=== PATIENT | female | born 1940 | race Caucasian/White ===

== ENCOUNTER 2021-05-22 18:06 | Emergency (ER) | payer MEDICARE, OTHER, SELFPAY ==
[2021-05-22 18:33] VITALS: BP 185/84; PULSE 108; O2SAT 96
[2021-05-22 18:44] VITALS: BP 163/102; PULSE 88; RESP 19; TEMP 36.6; O2SAT 96; BMI 28.3
--- NOTE | 2021-05-22 18:47 | ED_ITS ---
HPI - Psych General Chief Complaint: Back Pain/Injury Stated Complaint: CRISIS, BACK PAIN Time Seen by Provider: 05/22/21 18:45 Source: patient and EMS Mode of arrival: EMS History of Present Illness HPI Narrative: Patient's history of dementia depression came from home for increased depression not eating at all not getting up from the recliner since last night also complaining of low back pain which happened 2 days ago already seen by pcp. patient has mood swings shouting intermittently Related Data Allergies Allergy/AdvReac Type Severity Reaction Status Date / Time Penicillins [PCN] Allergy Unknown VAUGE Unverified 01/22/20 15:34 Sulfa (Sulfonamide Allergy Unknown VAUGE Unverified 01/22/20 15:34 Antibiotics) [SULFA (SULFONAMIDE ANTIBIOTICS)] VALISEPH Allergy Unknown tHEY ALL Uncoded 01/22/20 15:34 DO THE SAME THING Review of Systems Review of Systems: Yes all other systems are reviewed and are negative PMFSH Past Medical History Medical History Fibromyalgia Social History Social History Advance Directives: No Advance Directives Information Provided: Yes Physical Exam 2 Vital Signs: Vital Signs: Last Vital Signs Temp 98 F 05/22/21 18:44 Pulse 76 05/22/21 23:00 Resp 16 05/22/21 23:00 BP 112/66 05/22/21 23:00 Pulse Ox 98 05/22/21 23:00 BMI result Body Mass Index 28.3 Appearance: Alert. Oriented . No acute distress. Non cooperative Eyes: PERRLA, No Nystagmus no pallor or icterus ENT: Pharynx normal. Oral Mucosa moist Neck: Normal inspection. Neck supple. CVS: Normal heart rate and rhythm. Pulses normal. Respiratory: No respiratory distress. Equal air entry bilateral, no wheezing/rales/rhonchi Abdomen: Soft and nontender. Bowel sounds are present, no mass palpable, no CVA tenderness Skin: Skin warm and dry. Normal skin color. Normal skin turgor. Extremities: No lower extremity edema. No calf tenderness psych: Anxious shouting intermittently non cooperative to answer other questions Neuro: Oriented X 3. No motor deficit. No sensory deficit.No cerebellar signs , cranial nerves II-XII intact MDM - Psych MDM Narrative Medical decision making narrative: Patient with depression and anxiety lab workup negative for an metabolic cause will get N consult crisis, Patient seen by N no reason for her to be admitted advised to follow-up as outpatient patient come cooperative spoke to patient's agreed to take her back patient ambulated from bed to chair in steady gait Lab Data Attestation: I reviewed the patient's lab results. Result diagrams: 05/22/21 19:25 05/22/21 19:25 Labs: Lab Results 05/22/21 05/22/21 05/22/21 Range/Units 19:25 19:25 19:25 WBC 9.3 (4.8-10.8) X10*3/uL RBC 4.14 L (4.20-5.50) X10*6/uL Hgb 13.5 (12.0-16.0) g/dl Hct 39.8 (37.0-47.0) % MCV 96.1 (80.0-98.0) fL MCH 32.6 (27.0-33.0) pg MCHC 33.9 (31.0-35.0) g/dl RDW 12.9 (11.0-16.0) % Plt Count 187 (160-400) X10*3/uL MPV 9.9 (9.4-12.3) fL Immature Gran % (Auto) 0.3 (0.0-0.4) % Neut % (Auto) 74.5 H (45-73) % Lymph % (Auto) 14.5 L (20-40) % [place] % (Auto) 9.9 (2-11) % Eos % (Auto) 0.5 (0-4) % Baso % (Auto) 0.3 (0-2) % Lymph # (Auto) 1.4 (1.2-4.9) X10*3/uL [place] # (Auto) 0.9 (0.1-1.2) X10*3/uL Eos # (Auto) 0.1 (0.0-0.4) X10*3/uL Baso # (Auto) 0.0 (0.0-0.2) X10*3/uL Abs Immat Gran (auto) 0.03 (0.00-0.03) X10*3/uL Absolute Neuts (auto) 7.0 (2.0-8.3) x10*3/uL Absolute Nucleated RBC 0.000 (0.0-0.012) X10*3/uL Nucleated RBC % (auto) 0.0 (0.0-0.2) /100WBC Sodium 141 (135-145) mmol/L Potassium 4.7 (3.3-5.1) mmol/L Chloride 107 (96-108) mmol/L Carbon Dioxide 26 (22-29) mmol/L Anion Gap 13 (12-20) BUN 14 (9-16) mg/dL Creatinine 0.83 (0.5-1.4) mg/dL Estim Creat Clear Calc 56.4 Estimated GFR > 60 Random Glucose 127 H (60-115) mg/dL Calcium 9.6 (8.4-10.2) mg/dL Total Bilirubin 1.0 (0.0-1.0) mg/dL AST 20 (5-31) U/L ALT 15 (0-31) U/L Alkaline Phosphatase 74 (39-117) U/L Total Protein 7.0 (6.5-8.0) g/dL Albumin 4.1 (3.5-5.0) g/dL COVID-19 ([facility]IGH) Negative (Negative) COVID-19 Clin Com See Note Discharge Plan Discharge Clinical Impression: Dementia Qualifiers: Dementia type: Alzheimer's Alzheimer's disease onset: late-onset Dementia behavioral disturbance: with behavioral disturbance Qualified Code(s): G30.1 - Alzheimer's disease with late onset Patient Disposition: Home, Self-Care Instructions: Dementia (ED) Additional Instructions: Follow-up with your PCP and therapist Interventions: ED Discharge Assessment Last Done: 05/23/21 00:48 Discharge Date/Time: 05/23/21 00:48
[2021-05-22 19:29] LABS: MANUAL DIFF FLAG NO
[2021-05-22 19:31] LABS: Basophils Percent Auto 0.3 % (0-2); Eosinophils Absolute Auto 0.1 X10*3/uL (0.0-0.4); Eosinophils Percent Auto 0.5 % (0-4); Hematocrit 39.8 % (37.0-47.0); Hemoglobin 13.5 g/dl (12.0-16.0); Imm Gran Abs Auto 0.03 X10*3/uL (0.00-0.03); Imm Gran Pct Auto 0.3 % (0.0-0.4); Lymphocytes Absolute Auto 1.4 X10*3/uL (1.2-4.9); Lymphocytes Percent Auto 14.5 % (20-40); Mean Corpuscular HGB Conc 33.9 g/dl (31.0-35.0); Mean Corpuscular Hemoglobin 32.6 pg (27.0-33.0); Mean Corpuscular Volume 96.1 fL (80.0-98.0); Mean Platelet Volume 9.9 fL (9.4-12.3); Monocytes Absolute Auto 0.9 X10*3/uL (0.1-1.2); Monocytes Percent Auto 9.9 % (2-11); Neutrophils Percent Auto 74.5 % (45-73); Platelet Count 187 X10*3/uL (160-400); Red Blood Count 4.14 X10*6/uL (4.20-5.50); Red Cell Distribution Width 12.9 % (11.0-16.0); White Blood Count 9.3 X10*3/uL (4.8-10.8)
[2021-05-22 19:50] LABS: Alanine Aminotransferase 15 U/L (0-31); Albumin Level 4.1 g/dL (3.5-5.0); Alkaline Phosphatase 74 U/L (39-117); Anion Gap 13 (12-20); Aspartate Amino Transferase 20 U/L (5-31); Blood Urea Nitrogen 14 mg/dL (9-16); COVID-19 Test Negative (Negative); Calcium 9.6 mg/dL (8.4-10.2); Carbon Dioxide 26 mmol/L (22-29); Chloride 107 mmol/L (96-108); Creatinine Clr Calc Pharmacy 56.4; Estimated Glomerular Filt Rate > 60; Glucose Random 127 mg/dL (60-115); Potassium 4.7 mmol/L (3.3-5.1); Sodium 141 mmol/L (135-145)
--- NOTE | 2021-05-22 22:52 | MHC.CARE ---
CARE team was stopped by pt in ED 6H bed while walking by. This contract writer was not previously aware of pt, who was brought to ED by ambulance for back pain. Pt was irritable and angry, speaking loosely about her poor physical health and her frustration with her family members. She was reflecting on past life choices and the custodial consequences (getting , having children), and stated that she wishes she was , but that she would want to go in her sleep and be gone before everyone else. She denied wanting to harm herself and denied history of such. She stated that she has dementia and several other medical issues, and that she fell a few days ago and expressed her anger with being in pain from the fall. This contract writer spoke with ED physician, who requested that this contract writer contact the pt's to assess if he has any concerns for the pt's functioning and safety. Pt's , Medhat ([phone]) was contacted. He shared that he called EMS after 18 hours of the pt not moving from her [facility] recliner, and that she hadn't gotten up to use the bathroom or ate since Sunday evening. He reported that she had become increasingly irate over the course of that time and he was worried that she would become sick if she continued to refuse to move and would be an increasing risk for falling again. He shared that she was diagnosed with dementia within the past couple years and is suspecting that it could be progressing, but denied having any ongoing, significant concerns re: her cognitive functioning and personal safety at this time. Medhat reported that he feels that she may be experiencing muscle spasms when she tries to move, and that he has been waiting to hear back from the PA at the doctor's office about recommendations to manage her pain and discomfort. Medhat had other questions pertaining to her medical treatment while she's been in the ED and was told by this contract writer that someone will call back that will be better able to answer his questions. Details of 's concerns and suspicions were relayed to ED physician Dr. Au.
[2021-05-22 23:00] VITALS: BP 112/66; PULSE 76; RESP 16; O2SAT 98
--- NOTE | 2021-05-23 00:45 | PC.NURSE ---
I assumed care o this pt on her arrival to ED via EMS. Since she arived she has been alert, awake, responsive to verbal stimuli although very agitated and quick to verbally aggressive with any staffb who talks to her. She yells at staff members about her children and her and her life. She is not able to be re-directed when she is yelling about these thigns. She denies SI. Denies HI. SHe is not indicating that she is in any pain. She is COPPOLA x 4. SHe makes eye contact with RN. Respirations are non-labored, RR WNL, no cyanosis, she is speaking in full sentences.
--- NOTE | 2021-05-23 00:47 | PC.NURSE ---
Discharged at thsi time into the care of her . Keyla, whom I spoke with via telephone and whom came to the ED to pickj the pt up at this time. WHen the pt saw Keyla she was verbally aggressive with him, and he was visiibly annoyed with this. I spoke with Keyla about the pts ER course and we assisted the pt into [employer] car. he verbalized an uinderstanding of all DC orders.
== END 2021-05-23 00:48 | disposition home or self-care (01) ==
PROVIDERS: Emergency Provider Internal Medicine
DX: G30.1 Alzheimer's disease with late onset (principal); Z20.822 Contact with and (suspected) exposure to COVID-19; Z79.899 Other long term (current) drug therapy
CPT/HCPCS: 80053; 85025; 87635; 99284

== ENCOUNTER 2021-12-26 09:48 | Outpatient (REF) | payer OTHER, SELFPAY ==
--- NOTE | ~2021-12-26 | XR_ITS ---
EXAMINATION: XR KNEE, BILATERAL CLINICAL INFORMATION: Arthritis. COMPARISON: None TECHNIQUE: 2 views each knee. FINDINGS: LEFT KNEE: There is mild reduction in tricompartment joint space with mild periarticular spurring. There is no abnormal joint effusion, loose bodies or bony erosive changes. No fracture or lytic process. RIGHT KNEE: There is moderate medial and mild loss of lateral and patellofemoral compartment joint space with mild periarticular spurring. No joint effusion seen. There are no loose bodies. No acute fracture or dislocation. XR/XR knee RT 2V IMPRESSION: Mild degenerative changes left knee. No joint effusion, fracture or loose bodies, left knee. Mild degenerative changes right knee with periarticular spurring in the medial and patellofemoral compartments.
--- NOTE | ~2021-12-26 | XR_ITS ---
EXAMINATION: XR KNEE, BILATERAL CLINICAL INFORMATION: Arthritis. COMPARISON: None TECHNIQUE: 2 views each knee. FINDINGS: LEFT KNEE: There is mild reduction in tricompartment joint space with mild periarticular spurring. There is no abnormal joint effusion, loose bodies or bony erosive changes. No fracture or lytic process. RIGHT KNEE: There is moderate medial and mild loss of lateral and patellofemoral compartment joint space with mild periarticular spurring. No joint effusion seen. There are no loose bodies. No acute fracture or dislocation. XR/XR knee LT 2V IMPRESSION: Mild degenerative changes left knee. No joint effusion, fracture or loose bodies, left knee. Mild degenerative changes right knee with periarticular spurring in the medial and patellofemoral compartments.
== END 2021-12-26 09:49 | disposition home or self-care (01) ==
LOC: HO.XRAY 09:48
PROVIDERS: Visit Provider Psychiatry & Neurology Neurology
DX: M17.0 Bilateral primary osteoarthritis of knee (principal)
CPT/HCPCS: 73560

== ENCOUNTER 2022-12-07 21:00 | Emergency (ER) | payer OTHER, SELFPAY ==
[2022-12-07 21:31] VITALS: BP 165/87; PULSE 92; O2SAT 98; BMI 26.7
[2022-12-07 21:36] VITALS: BP 149/78; PULSE 79; RESP 18; TEMP 37.1; O2SAT 96
[2022-12-07 21:52] LABS: Hemoglobin 12.6 g/dl (12.0-16.0); Mean Corpuscular HGB Conc 34.1 g/dl (31.0-35.0); Mean Corpuscular Hemoglobin 32.1 pg (27.0-33.0); Mean Corpuscular Volume 94.4 fL (80.0-98.0); Mean Platelet Volume 10.3 fL (9.4-12.3); Platelet Count 196 X10*3/uL (160-400); Red Blood Count 3.92 X10*6/uL (4.20-5.50); White Blood Count 6.2 X10*3/uL (4.8-10.8)
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
[2022-12-07] MEDS: LORazepam 1 MG TABLET PO (21:57)
[2022-12-07] MEDS: OLANZapine 5 MG TABLET PO (21:57)
[2022-12-07 21:59] LABS: Appearance Urine Cloudy; Color Urine Yellow; Glucose Urine UA Negative (Negative); Leukocyte Esterase Urine Large (3+) (Negative); Nitrite Urine Negative (Negative); PH 7.5 (5.0-9.0); Specific Gravity - Urine 1.015 (1.005-1.025); UMIC TRIGGER UACC YES; Urine Blood Negative (Negative); Urine Ketones Trace mg/dL (Negative); Urine Protein Negative (Neg-Trace)
[2022-12-07 22:02] LABS: Bacteria Urine None Seen (None Seen); Hyaline Casts Urine 0-2 /LPF (0-2); Squamous Epithelial Cell Urine 0-2 /HPF (0-2); UACC Culture Trigger YES; WBC Urine >50 /HPF (0-5)
--- NOTE | 2022-12-07 22:18 | PC.NURSE ---
pt had been screaming and waving arms about, difficult to redirect. confused at times and conversation was flight of ideas. was willing to take po meds and is now starting to calm with eyes closed.
--- OUTSIDE RECORDS SUMMARY | 2022-12-07 22:26 | XMS_ITS | Continuity of Care Document ---
Author Name Unknown Organization [facility] Address [address] [place] [id number]- Care Team Providers Care Fish Icer Name Role Phone Esha HOBSON, Micha Short Primary Care Physician Encounter [facility] Date(s): 05/17/20 - 06/16/20 [facility] [address] [place] [id number]- Attending Physician: AdmTeressa parr Admitting Physician: Admtr, Teressa Referring Physician: Admtr, Ar8 Allergies, Adverse Reactions, Alerts Substance Reaction Severity Status penicillin Active sulfADIAZINE Active sulfa drugs Active Velosef Active Medications amitriptyline 10 mg oral tablet 1 tablet = 10 mg, By Mouth, Daily at bedtime, 0 Refills, Maintenance, 03/30/14 10:25:27 Start Date: 03/30/14 Status: Ordered Calcium 600 +D oral tablet 1 tablet, By Mouth, 2 times a day, 0 Refills, Maintenance Start Date: 04/05/10 Status: Ordered Centrum Silver 1 tab, By Mouth, Daily, 0 Refills, Maintenance Start Date: 04/05/10 Status: Ordered colestipol 1 gm oral tablet 1 tablet = 1 Gm, By Mouth, Daily, take 2 hours separate from other medications, # 30 tablet, 5 Refills, Maintenance, 01/16/20 12:01:00 EDT, Tablet, [facility] # [facility], 165, cm, 01/16/20 11:14:00 EDT, Height Start Date: 01/16/20 Status: Ordered Flax Seed Oil oral capsule 1000, By Mouth, Daily, 0 Refills, Maintenance Start Date: 04/05/10 Status: Ordered omeprazole 20 mg oral enteric coated tablet 1 tablet = 20 mg, By Mouth, 0 Refills, Maintenance Start Date: 04/05/10 Status: Ordered simvastatin 20 mg oral tablet 1 tablet = 20 mg, By Mouth, Daily at bedtime, 0 Refills, Maintenance, 03/30/14 10:25:40 Start Date: 03/30/14 Status: Ordered Vitamin C 500 mg oral capsule 1 capsule = 500 mg, By Mouth, 2 times a day, 0 Refills, Maintenance Start Date: 04/05/10 Status: Ordered Problem List Condition Effective Dates Status Health Status Inform ant Grade 2 endometrial adenocarcinoma(Confirmed) Active Fibromyalgia(Confirmed) Active Gastro-Esophageal Reflux Dis ease Without Esophagitis(Confirmed) Active Hypercholesterolemia(Confirmed) Active
--- OUTSIDE RECORDS SUMMARY | 2022-12-07 22:26 | XMS_ITS | Continuity of Care Document ---
Author Name Unknown Organization [facility] Address [address] [place] [address]- Care Team Providers Care General Manager Land Department Name Role Phone Micha Balbuena MD Primary Care Physician Encounter [facility] Date(s): 01/06/20 - 04/21/20 [facility] [address] [place] [id number]- Attending Physician: Reggie Larios MD Admitting Physician: Reggie Larios MD Referring Physician: Lux Farley Allergies, Adverse Reactions, Alerts Substance Reaction Severity [...]
[2022-12-07 23:06] LABS: Alanine Aminotransferase 14 U/L (0-31); Albumin Level 3.8 g/dL (3.5-5.0); Alkaline Phosphatase 90 U/L (39-117); Anion Gap 16 (12-20); Aspartate Amino Transferase 20 U/L (5-31); Bilirubin Total 0.7 mg/dL (0.0-1.0); Blood Urea Nitrogen 10 mg/dL (9-16); Calcium 9.5 mg/dL (8.4-10.2); Carbon Dioxide 21 mmol/L (22-29); Chloride 108 mmol/L (96-108); Creatinine Clr Calc Pharmacy 61.2; Estimated Glomerular Filt Rate > 60; Glucose Random 117 mg/dL (60-115); Potassium 3.6 mmol/L (3.3-5.1); Sodium 141 mmol/L (135-145); Total Protein 6.6 g/dL (6.5-8.0)
[2022-12-08 01:33] VITALS: BP 137/47; PULSE 72; RESP 18; O2SAT 96
--- NOTE | 2022-12-08 01:35 | MHC.EDTECH ---
Pt two assist to commode, back to bed. Repositioned, vitals updated, and resting quietly with call mar within reach
[2022-12-08 06:25] VITALS: RESP 18
[2022-12-08 09:49] VITALS: BP 146/64; PULSE 61; RESP 16; TEMP 37.1; O2SAT 99
--- NOTE | 2022-12-08 10:33 | PC.NURSE ---
Ceci [facility] Nurse call. She is calling her MD to reach out to Dr. Jeff contreras. Let her know Pt would decapitate rapidly in the Pod.
--- NOTE | 2022-12-08 10:36 | PC.NURSE ---
Dr Aguilar in to [facility].
--- NOTE | 2022-12-08 10:45 | ECG_ITS ---
Test Reason : qt interval Blood Pressure : / mmHG Vent. Rate : 072 BPM Atrial Rate : 072 BPM P-R Int : 146 ms QRS Dur : 082 ms QT Int : 414 ms P-R-T Axes : 082 -24 007 degrees QTc Int : 453 ms Normal sinus rhythm Minimal voltage criteria for LVH, may be normal variant ( R in aVL ) Borderline ECG When compared with ECG of 18-AUG-2019 10:13, No significant change was found Referred By: Pradip Aguilar Electronically Signed By:HUONG FAYE
--- NOTE | 2022-12-08 10:49 | PC.NURSE ---
Gricelda Cole notified of desire to discharge Pt from Pod.
--- NOTE | 2022-12-08 11:16 | PC.NURSE ---
Pt home number [phone] Cell number [phone]
[2022-12-08] MEDS: cephALEXin 500 MG CAPSULE PO (11:54)
--- NOTE | 2022-12-08 11:55 | PC.NURSE ---
Spoke with Carole RN. Carole wanted to discuss discharge for this patient. This commercial underwriter spoke with Dr Aguilar regarding plan of care for this patient. Dr. Aguilar reporting that he spoke with this patient's outpatient provider. Outpatient provider discussed importance of patient obtaining medical clearance and crisis eval. Dr. Aguilar proceeding with plan in place. Awaiting eval by the care team.
--- NOTE | 2022-12-08 12:47 | PC.NURSE ---
Pt is in bed. Warm blankets and extra pillows for comfort. Pt was given the remote control and reassurance. Pt was instructed to use the call mar. Video monitor is on. Pt is resting comfortably at this time.
--- NOTE | 2022-12-08 15:30 | PC.NURSE ---
denies si/hi/ah/vh. mildly confused to situation. no distress noted. calm, coopeartive. resting in milieu. answering questions appropriately. disposition in process once eval by chd complete
--- NOTE | 2022-12-08 15:55 | PC.NURSE ---
meeting w chd in room calm cooperative. no distress. w pt at bedside.
[2022-12-08 17:29] VITALS: BP 147/63; PULSE 65; RESP 18; TEMP 36.5; O2SAT 99
== END 2022-12-08 17:48 | disposition home or self-care (01) ==
PROVIDERS: Emergency Provider Internal Medicine
DX: F03.918 Unspecified dementia, unspecified severity, with other behavioral disturbance (principal); R94.31 Abnormal electrocardiogram [ECG] [EKG]; Z79.899 Other long term (current) drug therapy
CPT/HCPCS: 36415; 80053; 81001; 81003; 85027; 87086; 93005; 99284; 99285

== ENCOUNTER → 2022-12-08 10:45 | Outpatient (BNV) | payer OTHER, SELFPAY | PROVIDERS: Emergency Provider Internal Medicine; Visit Provider Internal Medicine | DX: I45.81 Long QT syndrome (principal) | CPT/HCPCS: 93010 ==

== ENCOUNTER 2023-12-26 13:57 | Emergency (ER) | payer OTHER, SELFPAY ==
--- NOTE | 2023-12-26 14:12 | ED_ITS ---
HPI - Psych General Chief Complaint: Psychiatric Symptoms Stated Complaint: CRISIS,SI STATEMENTS PER EMS Time Seen by Provider: 12/26/23 14:04 Source: patient, EMS, RN notes reviewed and old records reviewed Mode of arrival: EMS Limitations: no limitations History of Present Illness ED Provider: ROBERT STEVENS PA-C HPI Narrative: 83-year-old female with past medical history significant for depression, Alzheimer's dementia and fibromyalgia presents to the ED today via EMS home following verbal altercation with her . Per EMS, PD was called to the patient's home due to yelling heard by her neighbors. On PD arrival, EMS was contacted. Patient reports occasional episodes of verbal aggression towards her has been secondary to her Alzheimer's dementia. Patient was noted to make SI statements to EMS however she is currently denying SI, stating that she never made such statements. She does however endorse feeling depressed as she has not been able to see her adult children. Denies HI. Denies AH/VH/TH. Denies EtOH consumption. Denies illicit substance use. She denies any physical complaints at present. Related Data Home Medications ?Medication ?Instructions ?Recorded ?Confirmed ascorbic acid (vitamin C) 1,000 mg 500 mg PO DAILY 12/08/22 12/08/22 tablet (Vitamin C) calcium 600 mg capsule 600 mg PO DAILY 12/08/22 12/08/22 tbwkzlmykkyx-jjtqncgn-emkhaq tablet 1 tab PO DAILY 12/08/22 12/08/22 omeprazole 20 mg capsule,delayed 20 mg PO DAILY 12/08/22 12/08/22 release sertraline 25 mg tablet (Zoloft) 25 mg PO DAILY 12/08/22 12/08/22 simvastatin 20 mg tablet 20 mg PO BEDTIME 12/08/22 12/08/22 Previous Rx's ?Medication ?Instructions ?Recorded nitrofurantoin 100 mg PO BID 5 days #10 caps 12/08/22 monohydrate/macrocrystals 100 mg capsule (Macrobid) Allergies Allergy/AdvReac Type Severity Reaction Status Date / Time Penicillins [PCN] Allergy Unknown Unknown Verified 12/26/23 14:29 Sulfa (Sulfonamide Allergy Unknown Unknown Verified 12/26/23 14:29 Antibiotics) [SULFA (SULFONAMIDE ANTIBIOTICS)] Review of Systems 2 Review of Systems: Constitutional: No fever, chills, fatigue, night sweats, weight changes ENT/Mouth: No ear pain, hearing loss, nasal congestion, sinus pain, rhinorrhea, sore throat Eyes: No eye pain, swelling, redness, vision changes, discharge Cardio: No chest pain, palpitations, BIRCH, orthopnea, peripheral edema Pulm: No SOB, cough, sputum, wheezing, dyspnea, hemoptysis GI: No nausea, vomiting, hematemesis, abdominal pain, diarrhea, constipation, hematochezia, melena : No irregular bleeding, dysuria, frequency, urgency, hesitancy, hematuria, flank pain, urinary flow changes, urinary incontinence or retention MSK: No back pain, neck pain, joint pain, myalgias Skin: No lesions, rashes Neuro: No weakness, numbness, paresthesias, LOC, dizziness, headache Psych: No anxiety/panic, depression, SI/HI, AH/VH/TH All other systems reviewed and are negative. [facility] Past Medical History Attestation statement: The following information was validated with the patient. Source: old records reviewed and nursing notes reviewed Medical History Fibromyalgia Social History Social History Smoked in Last 30 Days: No Use of substances other than those prescribed or required for medical reasons: No Advance Directives: No Physical Exam 2 Vital Signs: Vital Signs: Last Vital Signs Temp 98.5 F 12/26/23 14:24 Pulse 78 12/26/23 14:24 Resp 16 12/26/23 14:30 BP 138/72 12/26/23 14:24 Pulse Ox 93 12/26/23 14:24 O2 Del Method Room Air 12/26/23 14:24 BMI result Body Mass Index 26.6 Vital signs stable Const: General: cooperative, healthy appearing, comfortable and no acute distress Orientation/consciousness: oriented to person and oriented to place Limitations: other limitations (Dementia) HEENT: Head: Yes normal to inspection, Yes No palpable skull fracture present, Yes normocephalic and Yes atraumatic Eyes: General: appearance normal, both eyes and all related structures C onjunctivae: conjunctivae normal Sclerae: sclerae normal Pupils: Equal, round and reactive pupils present Neck: Neck: Yes normal visual inspection, Yes full ROM and Yes no lymphadenopathy Resp: Effort & Inspection: normal respiratory effort and able to speak in complete sentences Auscultation: clear to auscultation bilaterally Cardio: Rate: regular rate Rhythm: regular rhythm GI: Inspection: Yes normal to inspection Palpation (GI): Soft to palpation and nontender : General: Yes no CVA tenderness Back/Spine/Pelvis: Back: no CVA tenderness Skin: General skin exam: no rashes or lesions noted Neuro: General: oriented to person, oriented to place, gait normal and no focal motor deficits Cranial nerves: Yes CN's II-XII intact bilaterally and Yes Equal, round and reactive pupils present Extrem: General: Yes normal to inspection Course Course Course Narrative: 1500 -- UA negative for infection. Urine toxicology negative. Labs pending. EKG pending. 1613-- CBC without leukocytosis or left shift. No anemia. H&H stable. Chemistry without acute electrolyte abnormality requiring intervention. No KATRIN. Normal liver function. EKG showing normal sinus rhythm with a rate of 65 beats per minute, QT 428, QTC 445, no acute ischemic changes or ST elevations. No major change when compared to prior EKGs. > at this time patient is medically cleared for care team evaluation. Patient placed in physician observation pending care team and disposition. 1807-- care team has evaluated patient and has determined that the patient does not meet medical necessity for hospitalization. She was advised by her eye doctor yesterday to discontinue her celexa temporarily for an eye procedure this coming Sunday. There is currently a a safety plan in place she has been provided with resources per care team. Patient does not endorse SI. Final disposition discussed with the patient. The patient completed observation care at 181, total time in observation care was 2 hours. Patient has remained stable throughout ED visit today. Discussed worrisome signs and symptoms and when to return to the ED. All questions answered at this time. Patient is agreeable with disposition and stable for discharge. Medical Decision Making Medical Decision Making [facility] Narrative: 83-year-old female with past medical history significant for depression, Alzheimer's dementia and fibromyalgia presents to the ED today via EMS home following verbal altercation with her . Vital signs are stable. She is well-appearing, no acute distress. Skin is warm, dry, intact. No rashes. Moist mucous membranes. RRR. Lungs are CTA bilaterally. Ambulating with steady gait. PERRLA. Oriented to person and place. Differential diagnosis includes depression, dementia, anemia, electrolyte abnormality, dehydration. Unlikely active SI, polysubstance use, psychiatric disroder Plan for basic labs, EKG, UA, UDS, care team consultation Differential Diagnosis Differential Diagnoses: The differential diagnosis associated with the presentation includes As above Admission/Observation Not indicated Lab Data MDM Lab Attestation statement: I reviewed the patient's lab results. As above 12/26/23 15:37 12/26/23 15:37 Labs: Lab Results 12/26/23 12/26/23 Range/Units 14:21 15:37 WBC 5.7 (4.8-10.8) X10*3/uL RBC 3.91 L (4.20-5.50) X10*6/uL Hgb 12.8 (12.0-16.0) g/dl Hct 38.0 (37.0-47.0) % MCV 97.2 (80.0-98.0) fL MCH 32.7 (27.0-33.0) pg MCHC 33.7 (31.0-35.0) g/dl RDW 13.4 (11.0-16.0) % Plt Count 198 (160-400) X10*3/uL MPV 10.6 (9.4-12.3) fL Immature Gran % (Auto) 0.4 (0.0-0.4) % Neut % (Auto) 61.2 (45-73) % Lymph % (Auto) 25.0 (20-40) % [place] % (Auto) 10.2 (2-11) % Eos % (Auto) 2.8 (0-4) % Baso % (Auto) 0.4 (0-2) % Lymph # (Auto) 1.4 (1.2-4.9) X10*3/uL [place] # (Auto) 0.6 (0.1-1.2) X10*3/uL Eos # (Auto) 0.2 (0.0-0.4) X10*3/uL Baso # (Auto) 0.0 (0.0-0.2) X10*3/uL Abs Immat Gran (auto) 0.02 (0.00-0.03) X10*3/uL Absolute Neuts (auto) 3.5 (2.0-8.3) x10*3/uL Absolute Nucleated RBC 0.000 (0.0-0.012) X10*3/uL Nucleated RBC % (auto) 0.0 (0.0-0.2) /100WBC Sodium 143 (135-145) mmol/L Potassium 4.2 (3.3-5.1) mmol/L Chloride 109 H (96-108) mmol/L Carbon Dioxide 29 (22-29) mmol/L Anion Gap 9 L (12-20) BUN 7 L (9-16) mg/dL Creatinine 0.77 (0.5-1.4) mg/dL Estim Creat Clear Calc 56.2 Estimated GFR > 60 Random Glucose 109 (60-115) mg/dL Calcium 9.9 (8.4-10.2) mg/dL Magnesium 2.1 (1.6-2.6) mg/dL Total Bilirubin 0.6 (0.0-1.0) mg/dL AST 24 (5-31) U/L ALT 18 (0-31) U/L Alkaline Phosphatase 78 (39-117) U/L Total Protein 7.4 (6.5-8.0) g/dL Albumin 4.1 (3.5-5.0) g/dL Urine Color Yellow Urine Appearance Clear Urine pH 7.5 (5.0-9.0) Ur Specific [place] 1.015 (1.005-1.025) Urine Protein Negative (Neg-Trace) mg/dL Urine Glucose (UA) Negative (Negative) mg/dL Urine Ketones Negative (Negative) mg/dL Urine Blood Negative (Negative) Urine Nitrite Negative (Negative) Ur Leukocyte Esterase Small (1+) H (Negative) Urine RBC 0-2 (0-2) /HPF Urine WBC 6-10 H (0-5) /HPF Ur Squamous Epith Cells 0-2 (0-2) /HPF Urine Bacteria None Seen (None Seen) Hyaline Casts 0-2 (0-2) /LPF Salicylates < 5.0 L (15-30) mg/dL Urine Opiates Screen Not Detected (Not Detect) Ur Buprenorphine Scrn Not Detected (Not Detect) ng/mL Ur Oxycodone Screen Not Detected (Not Detect) ng/mL Urine Methadone Screen Not Detected (Not Detect) ng/mL Urine Fentanyl Screen Not Detected (Not Detect) Acetaminophen < 3 (<30) mcg/mL Ur Barbiturates Screen Not Detected (Not Detect) Ur Phencyclidine Scrn Not Detected (Not Detect) Ur Amphetamines Screen Not Detected (Not Detect) U Benzodiazepines Scrn Not Detected (Not Detect) Urine Cocaine Screen Not Detected (Not Detect) U Marijuana (THC) Screen Not Detected (Not Detect) Ethyl Alcohol < 10 mg/dL Independent Interpretation I performed an independent interpretation of an: EKG Independent Historian Clinical information obtained from an independent historian. History obtained from or confirmed by: EMS External Record Review External record reviewed: Inpatient record Chronic Conditions Patient?s care impacted by: Other (Alzheimer's dementia, depression) Social Determinants Patient?s care significantly limited by Social Determinants of Health including: Other Social Determinant of Health Critical Care Time Critical Care Time Critical Care Time: No Discharge Plan Discharge Clinical Impression: Depression Patient Disposition: Home, Self-Care Instructions: Depression (ED) Additional Instructions: Your blood work today is reassuring. Your EKG is normal. Your urine is negative for infection. You have met with our CARE team today and were provided resources to help with depression. You have a safety plan in place. Regarding your recent discontinuation of Celexa, please follow up with your primary care provider as you may require a different medication. Please return with new or worsening symptoms. In the case of an emergency call 911. Prescriptions: No Action omeprazole 20 mg Capsule,Delayed Release(Dr/Ec) 20 mg PO DAILY Rx Instructions: with breakfast calcium 600 mg Capsule 600 mg PO DAILY ascorbic acid (vitamin C) [Vitamin C] 1,000 mg Tablet 500 mg PO DAILY simvastatin 20 mg Tablet 20 mg PO BEDTIME sertraline [Zoloft] 25 mg Tablet 25 mg PO DAILY Centrum Silver Tablet 1 tab PO DAILY nitrofurantoin monohyd/m-cryst [Macrobid] 100 mg capsule 100 mg PO BID 5 Days Qty: 10 0RF Rx Instructions: must administer with a meal/food Referrals: [facility] [place] [Provider Group] [facility] [Provider Group] Interventions: Mclennan-Suicide Risk Severity Scale Last Done: 12/26/23 14:31 Print Language: Malawian
--- NOTE | 2023-12-26 14:13 | ECG_ITS ---
Test Reason : PSYCH SYMPTOMS Blood Pressure : / mmHG Vent. Rate : 065 BPM Atrial Rate : 065 BPM P-R Int : 136 ms QRS Dur : 082 ms QT Int : 428 ms P-R-T Axes : 000 -28 171 degrees QTc Int : 445 ms Normal sinus rhythm Minimal voltage criteria for LVH, may be normal variant ( R in aVL ) Nonspecific T wave abnormality Abnormal ECG When compared with ECG of 08-DEC-2022 11:39, No significant change was found Referred By: Devora Vega Electronically Signed By:FAVIO CALLAWAY
[2023-12-26 14:24] VITALS: BP 138/72; BP 157/74; PULSE 76; PULSE 78; RESP 16; TEMP 36.9; O2SAT 93; O2SAT 98; BMI 26.6
[2023-12-26 14:29] LABS: Appearance Urine Clear; Color Urine Yellow; Glucose Urine UA Negative (Negative); Leukocyte Esterase Urine Small (1+) (Negative); Nitrite Urine Negative (Negative); PH 7.5 (5.0-9.0); Specific Gravity - Urine 1.015 (1.005-1.025); UMIC TRIGGER UACC YES; Urine Blood Negative (Negative); Urine Ketones Negative (Negative); Urine Protein Negative (Neg-Trace)
[2023-12-26 14:30] VITALS: RESP 16
[2023-12-26 14:32] LABS: Bacteria Urine None Seen (None Seen); Hyaline Casts Urine 0-2 /LPF (0-2); RBC Urine 0-2 /HPF (0-2); Squamous Epithelial Cell Urine 0-2 /HPF (0-2); UACC Culture Trigger YES
--- NOTE | 2023-12-26 14:32 | PC.NURSE ---
Melissa comes in from home today after a verbal altercation with her that was overheard by neighbors who called PD. Patient reports that she was yelling at her about how she hasn't eaten because she no longer feels like eating. She reports that she feels like she has more arguments with her that usual and it is getting very stressful. per EMS, patient is diagnosed with Alzheimer's/dementia and but is acting at baseline. Patient reports that she feels depressed because she has no contact with two of her adult children and therefore cannot see her grandchildren to live locally. Per EMS, she states she was suicidal but here in the ED she denies any suicidal or homicidal thoughts. Patient is calm and cooperative, alert and oriented x4, ambulatory with slightly unsteady gait. Patient aware of plan of care for med clearance and then CARE team eval
[2023-12-26 14:38] LABS: Amphetamine Screen Urine Not Detected (Not Detect); Barbiturates, Urine Not Detected (Not Detect); Benzodiazepines Screen Urine Not Detected (Not Detect); Buprenorphine Scr Not Detected (Not Detect); Cannabinoid Screen Urine Not Detected (Not Detect); Cocaine Screen Urine Not Detected (Not Detect); Fentanyl, urine Not Detected (Not Detect); Methadone Screen, Urine Not Detected (Not Detect); Opiate Screen Urine Not Detected (Not Detect); Oxycodone Screen Urine Not Detected (Not Detect); Phencyclidine Screen Urine Not Detected (Not Detect)
--- NOTE | 2023-12-26 15:22 | PC.NURSE ---
Patient awake and alert. Skin pwd, resp even and non labored. speaking in full, clear sentences. Currently visiting with her . calm and cooperative. Patient expressing concerns that she has an eye appointment on Sunday for a procedure on her right eye due to closed angle glaucoma. Patient aware of plan for labs and EKG.
[2023-12-26 15:42] LABS: MANUAL DIFF FLAG NO
[2023-12-26 15:56] LABS: Basophils Percent Auto 0.4 % (0-2); Eosinophils Absolute Auto 0.2 X10*3/uL (0.0-0.4); Eosinophils Percent Auto 2.8 % (0-4); Hemoglobin 12.8 g/dl (12.0-16.0); Imm Gran Abs Auto 0.02 X10*3/uL (0.00-0.03); Imm Gran Pct Auto 0.4 % (0.0-0.4); Lymphocytes Absolute Auto 1.4 X10*3/uL (1.2-4.9); Mean Corpuscular HGB Conc 33.7 g/dl (31.0-35.0); Mean Corpuscular Hemoglobin 32.7 pg (27.0-33.0); Mean Corpuscular Volume 97.2 fL (80.0-98.0); Mean Platelet Volume 10.6 fL (9.4-12.3); Monocytes Absolute Auto 0.6 X10*3/uL (0.1-1.2); Monocytes Percent Auto 10.2 % (2-11); Neutrophils Absolute Auto 3.5 x10*3/uL (2.0-8.3); Neutrophils Percent Auto 61.2 % (45-73); Platelet Count 198 X10*3/uL (160-400); Red Blood Count 3.91 X10*6/uL (4.20-5.50); Red Cell Distribution Width 13.4 % (11.0-16.0); White Blood Count 5.7 X10*3/uL (4.8-10.8)
[2023-12-26 16:04] LABS: Acetaminophen LAB < 3 mcg/mL (<30); Alanine Aminotransferase 18 U/L (0-31); Albumin Level 4.1 g/dL (3.5-5.0); Alkaline Phosphatase 78 U/L (39-117); Anion Gap 9 (12-20); Aspartate Amino Transferase 24 U/L (5-31); Bilirubin Total 0.6 mg/dL (0.0-1.0); Blood Urea Nitrogen 7 mg/dL (9-16); Calcium 9.9 mg/dL (8.4-10.2); Carbon Dioxide 29 mmol/L (22-29); Chloride 109 mmol/L (96-108); Creatinine Clr Calc Pharmacy 56.2; Estimated Glomerular Filt Rate > 60; Ethanol < 10 mg/dL; Glucose Random 109 mg/dL (60-115); Magnesium 2.1 mg/dL (1.6-2.6); Potassium 4.2 mmol/L (3.3-5.1); Salicylate < 5.0 mg/dL (15-30); Sodium 143 mmol/L (135-145); Total Protein 7.4 g/dL (6.5-8.0)
[2023-12-26 18:44] VITALS: BP 117/72; PULSE 67; RESP 16; TEMP 36.8; O2SAT 96
== END 2023-12-26 18:55 | disposition home or self-care (01) ==
PROVIDERS: Physician Assistant Medical; Emergency Provider Emergency Medicine
DX: F32.A Depression, unspecified (principal); G30.9 Alzheimer's disease, unspecified; M79.7 Fibromyalgia; Z79.899 Other long term (current) drug therapy
CPT/HCPCS: 36415; 80053; 80143; 80179; 80307; 81001; 83735; 85025; 87086; 93005; 99285; S9485

== ENCOUNTER 2023-12-31 11:07 | Outpatient (REF) | payer OTHER, SELFPAY ==
[2023-12-31 11:20] VITALS: BP 138/63; PULSE 58; RESP 18; TEMP 36.6; O2SAT 97; BMI 27.5
== END 2023-12-31 11:08 | disposition home or self-care (01) ==
LOC: HO.MS 11:07
PROVIDERS: Visit Provider Ophthalmology
PROC: (CPT 66761; principal; 2023-12-31 14:20)
DX: H40.031 Anatomical narrow angle, right eye (principal)
CPT/HCPCS: 66761

== ENCOUNTER 2024-01-21 08:21 | Day surgery (SDC) | payer OTHER, SELFPAY ==
[2024-01-16 07:36] VITALS: BMI 30.1
--- NOTE | 2024-01-17 13:55 | P.CONAN_ITS ---
Documented by User: Nancie Olvera NP 01/17/24 13:55 HPI - Anesthesia Eval Consult details Narrative: 83yo F for Right Cataract Extraction IOL Insertion No previous cataract on record PMFSH Past Medical History Medical History History of endometrial cancer Dysuria Dysphagia Cataract Positive TB test Prediabetes Spinal stenosis of lumbar region Osteoarthritis Neuropathy Thyroid disease Hyperlipidemia Lumbar compression fracture Umbilical hernia Hiatal hernia GERD (gastroesophageal reflux disease) Diarrhea Dysplastic nevus Depression Alzheimer dementia Anxiety Fibromyalgia Surgical History Surgical History Hx of tonsillectomy Hx of hysterectomy Social History Social History Are you a primary respiratory care instructor to a significant other at home: No Patient Tobacco Use Status: Never used Tobacco Use of substances other than those prescribed or required for medical reasons: No Have you been hit, kicked, punched, or otherwise hurt by someone within the past year? If so, by whom?: No Are you DNR?: No Advance Directives: No Advance Directives Information Provided: Yes Advance Directives on File: No Recently lost weight without trying: No Eating poorly because of decreased appetite: No Nutrition Risks: No Nutritional Risk Patient : No : No Meds Allergies Allergy/AdvReac Type Severity Reaction Status Date / Time Penicillins [PCN] Allergy Unknown Unknown Verified 12/26/23 14:29 Sulfa (Sulfonamide Allergy Unknown Unknown Verified 12/26/23 14:29 Antibiotics) [SULFA (SULFONAMIDE ANTIBIOTICS)] cephradine [From Velosef] Allergy Unknown Verified 01/16/24 07:31 sertraline [From Zoloft] Allergy Rash Verified 01/16/24 07:31 Home Medications ?Medication ?Instructions ?Recorded ?Confirmed ?Last Taken ?Type ascorbic acid (vitamin C) 1,000 mg 500 mg PO DAILY 12/08/22 01/16/24 12/08/22 History tablet (Vitamin C) calcium 600 mg capsule 600 mg PO DAILY 12/08/22 01/16/24 12/08/22 History xusjnqufqxde-gfwnivsx-sbpqzw tablet 1 tab PO DAILY 12/08/22 01/16/24 12/08/22 History omeprazole 20 mg capsule,delayed 20 mg PO DAILY 12/08/22 01/16/24 12/08/22 08:00 History release 20 simvastatin 20 mg tablet 20 mg PO BEDTIME 12/08/22 01/16/24 12/08/22 History Exam Height,Weight and Vital Signs: Height 5 ft 3 in Weight 77.111 kg Assessment and Plan Assessment Anesthesia Assessment: Chart Reviewed Documented by User: Milka Vigil MD 01/21/24 11:15 PMFSH Past Medical History Medical History History of endometrial cancer Dysuria Dysphagia Cataract Positive TB test Prediabetes Spinal stenosis of lumbar region Osteoarthritis Neuropathy Thyroid disease Hyperlipidemia Lumbar compression fracture Umbilical hernia Hiatal hernia GERD (gastroesophageal reflux disease) Diarrhea Dysplastic nevus Depression Alzheimer dementia Anxiety Fibromyalgia Surgical History Surgical History Hx of tonsillectomy Hx of hysterectomy History of Problems with Anesthesia: No Social History Social History Are you a primary respiratory care instructor to a significant other at home: No Patient Tobacco Use Status: Never used Tobacco Use of substances other than those prescribed or required for medical reasons: No Have you been hit, kicked, punched, or otherwise hurt by someone within the past year? If so, by whom?: No Are you DNR?: No Advance Directives: No Advance Directives Information Provided: Yes Advance Directives on File: No Recently lost weight without trying: No Eating poorly because of decreased appetite: No Nutrition Risks: No Nutritional Risk Patient : No : No Meds Allergies Allergy/AdvReac Type Severity Reaction Status Date / Time Penicillins [PCN] Allergy Unknown Unknown Verified 12/26/23 14:29 Sulfa (Sulfonamide Allergy Unknown Unknown Verified 12/26/23 14:29 Antibiotics) [SULFA (SULFONAMIDE ANTIBIOTICS)] cephradine [From Velosef] Allergy Unknown Verified 01/16/24 07:31 sertraline [From Zoloft] Allergy Rash Verified 01/16/24 07:31 Home Medications ?Medication ?Instructions ?Recorded ?Confirmed ?Last Taken ?Type ascorbic acid (vitamin C) 1,000 mg 500 mg PO DAILY 12/08/22 01/16/24 12/08/22 History tablet (Vitamin C) calcium 600 mg capsule 600 mg PO DAILY 12/08/22 01/16/24 12/08/22 History drsuekjxompj-tffvfdkx-fksjgk tablet 1 tab PO DAILY 12/08/22 01/16/24 12/08/22 History omeprazole 20 mg capsule,delayed 20 mg PO DAILY 12/08/22 01/16/24 12/08/22 08:00 History release 20 simvastatin 20 mg tablet 20 mg PO BEDTIME 12/08/22 01/16/24 12/08/22 History Exam Airway Mallampati Class: III (prominent upper central caps) TM Dist: >3cm Neck ROM: Full Loose/Missing/Broken Teeth: No Heart: RRR Lungs: CTA Assessment and Plan Assessment Anesthesia Assessment: Anesthesia Plan Discussed Final Anesthetic Review History of Problems with Anesthesia: No NPO: Yes ASA Class: III Final Preanesthetic Review: Meds/Allgs Chart Reviewed, Consent Obtained/Reviewed and Anes Risks/Benef Reviewed Patient Risk: Intermediate Procedure Risk: Low Anesthetic Plan Anesthetic Plan: GA Disposition: Standard PACU
[2024-01-21] MEDS: Tetracaine HCl/PF 0.5% Oph Sol 4 ML DROPS 1 DROP EYE-RIGHT (10:30)
[2024-01-21] MEDS: Cyclopentolate 1 % Ophth Sol 2 ML DRPBTL 1 DROP EYE-RIGHT (10:32)
[2024-01-21] MEDS: Tropicamide 1 % Ophth Sol 3 ML BTL 1 DROP EYE-RIGHT (10:34)
[2024-01-21] MEDS: Ketorolac Tromethamine 0.5% Op 10 ML DROPS 1 DROP EYE-RIGHT (10:36)
[2024-01-21] MEDS: Phenylephrine HCL 2.5% Oph SoL 2 ML BOTTLE 1 DROP EYE-RIGHT (10:38)
[2024-01-21] MEDS: Lactated Ringers 500 ML 50 ML IV (11:07)
[2024-01-21 11:10] VITALS: BP 147/66; PULSE 43; RESP 16; TEMP 35.8; O2SAT 98
--- NOTE | 2024-01-21 12:24 | MHC.SHP ---
Pre-Procedural Eval Section A - 24 Hr Update-Section A only Date of Service: 01/21/24 The patient is an INPATIENT: No Changes since office visit: No Cold of Flu in the past 2 weeks, No New Medical Problems, No Changes in Medication and No Patient answered all questions The patient has been examined within 24 hours of the surgical procedure. The History & Physical has been completed within 30 days and I have reviewed it.: Yes Section B - Complete if H&P > 30 days Chief Complaint: Age-related nuclear cataract, right eye Allergies: Allergies Allergy/AdvReac Type Severity Reaction Status Date / Time Penicillins [PCN] Allergy Unknown Unknown Verified 12/26/23 14:29 Sulfa (Sulfonamide Allergy Unknown Unknown Verified 12/26/23 14:29 Antibiotics) [SULFA (SULFONAMIDE ANTIBIOTICS)] cephradine [From Velosef] Allergy Unknown Verified 01/16/24 07:31 sertraline [From Zoloft] Allergy Rash Verified 01/16/24 07:31 Plan Diagnosis/Plan: Unchanged I have reviewed the history and physical and performed a pertinent physical examination on my patient. No changes have occurred unless specified. Time Spent With Patient Time: Total time managing care of this patient today ____ minutes.
--- NOTE | 2024-01-21 12:24 | HO.PNOPHT ---
Ophthalmology Procedure Procedure Date of Service: 01/21/24 Ophthalmology Viscoelastic: Healvadim Hesst Dual Pack Pro Ophthalmology Lenses: TECNIS [id number] (23.5) Procedure Notes: PREOPERATIVE DIAGNOSIS: Decreased visual acuity right eye secondary to cataract POSTOPERATIVE DIAGNOSIS: Same PROCEDURE: Right cataract extraction with intraocular lens insertion SURGEON: Justin Da Silva M.D. ANESTHESIA: Topical/MAC ESTIMATED BLOOD LOSS: None COMPLICATIONS: None After obtaining informed consent, the patient was brought to the operating room suite and placed in the supine position. After adequate sedation per anesthesia, topical drops of Tetracaine were given to the right eye. The eye was then prepped and draped in the usual sterile fashion. The operating room microscope was then positioned over the operative eye and a lid speculum placed. A paracentesis was created. Viscoelastic was then instilled into the anterior chamber. A three plane incision was then created temporally, utilizing a 2.85 mm keratome. Capsulotomy forceps were then utilized to create a circular tear capsulotomy. Hydrodissection and hydrodelineation were carried out until adequate mobilization of the nucleus occurred. Phacoemulsification was then utilized to remove the dense central nucleus followed by removal of the cortical material utilizing the automated aspiration irrigation unit. Viscoelastic was instilled into the posterior capsular bag followed by placement of a posterior chamber intraocular lens without difficulty. The residual Viscoelastic was then removed utilizing the automated IA machine. The wound was checked and found to be watertight. The patient tolerated the procedure well and the lid speculum was removed. Intracameral injection of Vigamox 0.1 mL followed by a subtenon injection of Kenalog-40 0.2 mL were administered. The patient will be seen in the a.m.
[2024-01-21 13:17] VITALS: BP 140/72; PULSE 58; RESP 16; TEMP 36.2; O2SAT 98
[2024-01-21 13:22] VITALS: BP 148/73; PULSE 67; RESP 16; O2SAT 99
[2024-01-21 13:27] VITALS: BP 154/73; PULSE 54; RESP 16; O2SAT 99
[2024-01-21 13:32] VITALS: BP 147/72; PULSE 59; RESP 18; TEMP 36.3; O2SAT 100
== END 2024-01-21 13:44 | disposition home or self-care (01) ==
PROVIDERS: Visit Provider Ophthalmology
PROC: (CPT 66985; principal; 2024-01-21 10:30)
DX: H25.11 Age-related nuclear cataract, right eye (principal); H54.7 Unspecified visual loss; H40.021 Open angle with borderline findings, high risk, right eye; Z96.1 Presence of intraocular lens; M79.7 Fibromyalgia; M19.90 Unspecified osteoarthritis, unspecified site; Z87.310 Personal history of (healed) osteoporosis fracture; G30.9 Alzheimer's disease, unspecified; F02.B11 Dementia in other diseases classified elsewhere, moderate, with agitation; Z85.42 Personal history of malignant neoplasm of other parts of uterus; Z79.899 Other long term (current) drug therapy; Z88.8 Allergy status to other drugs, medicaments and biological substances
CPT/HCPCS: 66984; J1100; J2405; J2704; J3010; J3301; V2632